=== PATIENT | female | born 1995 | race African-American/Black ===

== ENCOUNTER 2016-06-22 13:43 | Emergency (ER) | payer OTHER ==
[~2016-06-22] VITALS: Ht 152.4 cm; Wt 59.9 kg
[~2016-06-22 13:43] MED LIST: AFRIN15 ML NASAL; BIRTH CONTROL; DIFLUCAN100 MG PO; GILDESS1 EACH PO; MACROBID100 MG ORAL; NITROFURANTOIN100 M2 ORAL
[2016-06-22] MEDS ORDERED: VITAMIN D1000 UNI1 ORAL (13:54)
[2016-06-22 15:07] VITALS: BP 120/72
[2016-06-22] MEDS ORDERED: IBUPROFEN600 MG ORAL (15:18)
[2016-06-22 15:22] VITALS: BP 120/72
--- NOTE | 2016-06-23 12:34 | Emergency Room Report ---
History of Present Illness General Chief Complaint: Chest Pain Source: Patient Present Illness HPI The patient is a 20-year-old female presenting with left-sided chest pain which began one week prior. The pain is described as constant 5/10 dull ache and radiates to the left shoulder. The patient denies any known activity that may have caused this including increased physical activity or trauma. The patient denies any increased stressors in her life. The patient denies any medical history denies any familial cardiac history. The patient denies shortness of breath, diaphoresis, fatigue, weakness, palpitations, abdominal pain, nausea, vomiting, fever Allergies: Coded Allergies: No Known Allergies (Unverified , 08/04/13) Patient History Past Medical History: see triage record Pertinent Family History: none Last Menstrual Period: 06/18/2015 Reviewed Nursing Documentation: PMH: Agreed, PSxH: Agreed Nursing Documentation-PMH Past Medical History: No History, Except For Review of Systems All Other Systems: negative except mentioned in HPI Physical Exam Vital Signs Date Time Temp Pulse Resp B/P Pulse Ox O2 Delivery O2 Flow Rate FiO2 06/22/16 13:49 98.4 89 16 121/79 99 Room Air Sp02 EP Interpretation: reviewed, normal General Appearance: no apparent distress, alert, GCS 15, non-toxic Head: normocephalic, atraumatic Eyes: bilateral eye PERRL, bilateral eye normal inspection ENT: hearing grossly normal, normal pharynx, no angioedema, normal voice Neck: full range of motion, supple/symm/no masses Respiratory: chest non-tender, lungs clear, normal breath sounds, no accessory muscle use, no wheezing, speaking full sentences Cardiovascular #1: normal inspection, regular rate, rhythm, no edema, no murmur Gastrointestinal: normal bowel sounds, non tender, soft, non-distended, no guarding, no rebound Genitourinary: normal inspection, no CVA tenderness Musculoskeletal: back normal, gait/station normal, normal range of motion, non- tender, tender - TTP over mid sternum Neurologic: alert, oriented x3, responsive, motor strength/tone normal, sensory intact, speech normal Psychiatric: judgement/insight normal, memory normal, mood/affect normal, no suicidal/homicidal ideation Skin: normal color, no rash, warm/dry, well hydrated Lymphatic: no adenopathy Medical Decision Making PA Attestation Dr. Chahal is my supervising physician. Patient management was discussed with my supervising physician Diagnostic Impression: Primary Impression: Nonspecific chest pain ER Course The patient is a 20-year-old female presenting with left-sided chest pain which began one week prior. DDx: musculoskeletal pain, pericarditis, ACS, PE PE: Vitals WNL. NAD. RRR. No MRG. TTP over mid sternum. Abdomen: Normal appearance. Non distended. No ecchymosis. Normal BS. Non TTP. No McBurney point tenderness. No guarding. No CVA tenderness EKG unremarkable. Urine preg neg. Pt given motrin for pain with goof relief. The pt will be OK'ed home with prescription for motrin and will FU with PMD. ER precautions given Laboratory Tests Test 06/22/16 14:25 Urine HCG, Qualitative Negative Lab Results Impression Urine preg negative EKG Diagnostic Results Rate: normal Rhythm: NSR ST Segments: no acute changes ASA given to the pt in ED: No PA Scribe Text EKG was reviewed and read with my supervising physician. No acute ST segment changes are seen. Normal rate and rhythm. No acute changes. Last Vital Signs Date Time Temp Pulse Resp B/P Pulse Ox O2 Delivery O2 Flow Rate FiO2 06/22/16 15:22 98.7 74 16 120/72 97 Room Air Status: improved Disposition: HOME, SELF-CARE Condition: Improved Scripts Ibuprofen* (MOTRIN*) 600 Mg Tablet 600 MG ORAL Q8H Y for For Pain, #30 TAB 0 Refills Prov: JENS VERONICA 06/22/16 Patient Instructions: Nonspecific Chest Pain Additional Instructions: I discussed my findings with the patient. All questions and concerns have been answered. Treatment and medication compliance have been addressed. I advised the patient that they need to follow up with PMD in 3-5 days. Return to ED if symptoms worsen, new symptoms arise, or if needed for any reason. Patient verbalized understanding of discharge instructions. JENS VERONICA Jun 23, 2016 12:34
--- NOTE | 2016-06-26 18:05 | Cardiology Report ---
APPROVED REPORT EKG Measurement Heart [id number] Normal sinus rhythm with sinus arrhythmia Normal ECG
== END 2016-06-22 15:24 | disposition home or self-care (01) ==
LOC: EMR 14:00
DX: R07.9 Chest pain, unspecified (principal)
CPT/HCPCS: 81025; 93005; 99283

== ENCOUNTER 2016-09-06 11:16 | Emergency (ER) | payer OTHER ==
[~2016-09-06] VITALS: Ht 152.4 cm; Wt 54.4 kg
[~2016-09-06 11:16] MED LIST changes: +IBUPROFEN600 MG ORAL; +VITAMIN D1000 UNI1 ORAL
[2016-09-06] MEDS ORDERED: TYLENOL COLD &1 EAC1 PO (11:45)
[2016-09-06 11:59] VITALS: BP 120/80
--- NOTE | 2016-09-06 14:08 | Emergency Room Report ---
History of Present Illness General Chief Complaint: Sore Throat Source: Patient Present Illness HPI 20-year-old female presents ED complaining of sore throat x3 days. Notes pain with swallowing. Denies cough. Denies any fevers or chills. Denies sick contacts or recent travel. Pain is throbbing, 8/10, nonradiating. No other aggravating or relieving factors. Denies any other associated symptoms Allergies: Coded Allergies: No Known Allergies (Unverified , 08/04/13) Patient History Past Medical History: none Past Surgical History: none Pertinent Family History: none Social History: Denies: alcohol use, drug use, smoking Last Menstrual Period: 07/10/2016 Now: No : 0 Para: 0 Immunizations: UTD Reviewed Nursing Documentation: PMH: Agreed, PSxH: Agreed Review of Systems All Other Systems: negative except mentioned in HPI Physical Exam Vital Signs Date Time Temp Pulse Resp B/P Pulse Ox O2 Delivery O2 Flow Rate FiO2 09/06/16 11:28 98.1 100 16 113/64 99 09/06/16 11:57 Room Air Sp02 EP Interpretation: reviewed, normal General Appearance: no apparent distress, alert, GCS 15, non-toxic Head: normocephalic, atraumatic Eyes: bilateral eye PERRL, bilateral eye normal inspection ENT: hearing grossly normal, normal pharynx, no angioedema, normal voice Neck: full range of motion, supple/symm/no masses Respiratory: chest non-tender, lungs clear, normal breath sounds, speaking full sentences Cardiovascular #1: regular rate, rhythm, no edema Cardiovascular #2: 2+ carotid (R), 2+ carotid (L), 2+ radial (R), 2+ radial (L) , 2+ dorsalis pedis (R), 2+ dorsalis pedis (L) Gastrointestinal: normal bowel sounds, non tender, soft, non-distended, no guarding, no rebound Rectal: deferred Genitourinary: normal inspection, no CVA tenderness Musculoskeletal: back normal, gait/station normal, normal range of motion, non- tender Neurologic: alert, oriented x3, responsive, motor strength/tone normal, sensory intact, speech normal Psychiatric: judgement/insight normal, memory normal, mood/affect normal, no suicidal/homicidal ideation Reflexes: 3+ bicep (R), 3+ bicep (L), 3+ tricep (R), 3+ tricep (L), 3+ knee (R) , 3+ knee (L) Skin: normal color, no rash, warm/dry, well hydrated Lymphatic: no adenopathy Medical Decision Making Diagnostic Impression: Primary Impression: Viral pharyngitis ER Course Hospital Course 20-year-old female presents to ED complaining of sore throat Differential diagnoses include: URI, pharyngitis, otitis media Clinical course Patient placed on stretcher. After initial history, physical exam reveals a female in no acute distress. Bilateral TM unremarkable. There is no pharyngeal erythema, no tonsillar exudates. No lymphadenopathy. Clinical findings likely viral pharyngitis. Reassurance given. Treatment is supporttive Diagnosis - viral pharyngitis Stable and discharged home with prescriptions for tylenol multisymptom. Instructed to followup with PMD. return to ED if symptoms recur or worsen Last Vital Signs Date Time Temp Pulse Resp B/P Pulse Ox O2 Delivery O2 Flow Rate FiO2 09/06/16 11:59 98.0 86 16 120/80 98 Room Air Status: improved Disposition: HOME, SELF-CARE Condition: Stable Scripts Phenylephrine/Dm/Acetaminop/Gg (TYLENOL COLD & FLU SEVERE CPLT) 1 Each Tablet 1 EACH PO Q6HR for 7 Days, TAB Prov: MIMI MOROCHO M.D. 09/06/16 Referrals: [facility],REFERRING (PCP) Patient Instructions: Pharyngitis, [id number] MIMI MOROCHO M.D. Sep 06, 2016 14:08
== END 2016-09-06 11:57 | disposition home or self-care (01) ==
LOC: EMR 11:40
DX: J02.9 Acute pharyngitis, unspecified (principal); B34.9 Viral infection, unspecified
CPT/HCPCS: 99283

== ENCOUNTER 2017-01-10 12:52 | Emergency (ER) | payer OTHER ==
[~2017-01-10] VITALS: Ht 152.4 cm; Wt 61.7 kg
[~2017-01-10 12:52] MED LIST changes: +TYLENOL COLD &1 EAC1 PO
[2017-01-10 13:03] VITALS: BP 123/80
--- NOTE | 2017-01-10 13:12 | Emergency Room Report ---
History of Present Illness General Chief Complaint: Female Urogenital Problems Source: Patient Present Illness HPI 21 YO Female presents to ED c/o frequency, and spotting dark brown vaginal d/c possibly blood yesterday. pt. denies d/c today. pt. denies recent unprotected intercourse. Pt states she has not been sexually active in almost a year and also reports she quit taking - control two months ago. Denies hematuria, dysuria, rashes or open lesions. denies N/V/F/C, or abdominal pain. Pt. reports lower abdominal pressure/fullness rated as 4/10 in severity, denies tenderness. Denies CP, Palpitations, LOC, AMS, dizziness, Changes in Vision, Sensation, paresthesias, or a sudden severe headache. Allergies: Coded Allergies: No Known Allergies (Unverified , 08/04/13) Patient History Past Medical History: see triage record Past Surgical History: none Pertinent Family History: none Last Menstrual Period: 12/26/16 Now: No : 0 Para: 0 Immunizations: UTD Reviewed Nursing Documentation: PMH: Agreed, PSxH: Agreed Nursing Documentation-PMH Past Medical History: No History, Except For Review of Systems All Other Systems: negative except mentioned in HPI Physical Exam Vital Signs Date Time Temp Pulse Resp B/P Pulse Ox O2 Delivery O2 Flow Rate FiO2 01/10/17 13:03 98.4 76 17 123/80 98 Room Air Sp02 EP Interpretation: reviewed, normal General Appearance: no apparent distress, alert, GCS 15, non-toxic Head: normocephalic, atraumatic Eyes: bilateral eye PERRL, bilateral eye normal inspection ENT: hearing grossly normal, normal pharynx, no angioedema, normal voice Neck: full range of motion, supple/symm/no masses Respiratory: lungs clear, normal breath sounds, speaking full sentences Cardiovascular #1: regular rate, rhythm, no edema Gastrointestinal: normal bowel sounds, non tender, soft, no guarding, no rebound Rectal: deferred Genitourinary: normal inspection, no CVA tenderness, adnexa normal, cervix normal, ext genitalia/vag normal, os closed, urethra normal, other - no CMT, no vaginal d/c noted, no blood. Musculoskeletal: back normal, gait/station normal, normal range of motion, non- tender Neurologic: alert, oriented x3, responsive, motor strength/tone normal, sensory intact, speech normal Psychiatric: judgement/insight normal, memory normal, mood/affect normal Skin: normal color, no rash, warm/dry, well hydrated Lymphatic: no adenopathy Medical Decision Making PA Attestation Dr. Schmitt is my supervising Physician whom patient management has been discussed with. Diagnostic Impression: Primary Impression: Urinary frequency Additional Impression: Vaginal discharge ER Course 21 YO Female presents to ED c/o frequency, and spotting dark brown vaginal d/c possibly blood yesterday. pt. denies d/c today. pt. denies recent unprotected intercourse. Pt states she has not been sexually active in almost a year and also reports she quit taking - control two months ago. Denies hematuria, dysuria, rashes or open lesions. denies N/V/F/C, or abdominal pain. Pt. reports lower abdominal pressure/fullness rated as 4/10 in severity, denies tenderness. Denies CP, Palpitations, LOC, AMS, dizziness, Changes in Vision, Sensation, paresthesias, or a sudden severe headache. Ddx considered but are not limited to UTi , Pyelo, STI, Stone, Cystitis Vital signs: are WNL, pt. is afebrile H&PE are most consistent with spotting, will r/o UTI and do wet mount. HPI not consistent with STI, and pt. states she does not want prophylactic treatment. ORDERS: - UA labs are attached - unremarkable /no evidence of infection: occasional bacteria, few squamous epithelium, no elevation in WBC's or leuks, contamination more likely. -Wet Mount: no clue , no trich, no bacteria, no yeast. -Urine Hcg: negative I do not feel imaging/US is warranted at this time, as symptoms are not currently present, and pt. has no tenderness/pain. ED INTERVENTIONS: None required at this time. d/w pt. the results of her laboratory testing, and encouraged follow up with PCP or OBGYN. Return to ED with worsening or new symptoms. DISCHARGE: At this time pt. is stable for d/c to home. Will provide printed patient care instructions, and any necessary prescriptions. Care plan and follow up instructions have been discussed with the patient prior to discharge. Labs Test 01/10/17 13:10 Urine Color Yellow Urine Appearance Clear Urine pH 7 (4.5-8.0) Urine Specific Power 1.010 (1.005-1.035) Urine Protein Negative (NEGATIVE) Urine Glucose (UA) Negative (NEGATIVE) Urine Ketones Negative (NEGATIVE) Urine Occult Blood Negative (NEGATIVE) Urine Nitrite Negative (NEGATIVE) Urine Bilirubin Negative (NEGATIVE) Urine Urobilinogen Normal MG/DL (0.0-1.0) Urine Leukocyte Esterase 1+ (NEGATIVE) Urine RBC 0-2 /HPF (0 - 2) Urine WBC 2-4 /HPF (0 - 2) Urine Squamous Epithelial Cells Few /LPF (NONE/OCC) Urine Bacteria Occasional /HPF (NONE) Urine HCG, Qualitative Negative Last Vital Signs Date Time Temp Pulse Resp B/P Pulse Ox O2 Delivery O2 Flow Rate FiO2 01/10/17 13:03 98.4 76 17 123/80 98 Room Air Disposition: HOME, SELF-CARE Condition: Stable Scripts Phenazopyridine Hcl* (PYRIDIUM*) 100 Mg Tablet 100 MG ORAL THREE TIMES A DAY for 3 Days, #9 TAB Prov: Susanne Champagne 01/10/17 Patient Instructions: Urinary Frequency Additional Instructions: Take medications as directed. Follow up with a Primary Care Provider in 3-5 days, even if your symptoms have resolved. --Please review list of primary care clinics, if you do not already have a primary care provider Return sooner to ED if new symptoms occur, or current symptoms become worse. - Please note that this Emergency Department Report was dictated using [employer]/program director technology software, occasionally this can lead to erroneous entry secondary to interpretation by the dictation equipment. Susanne Champagne Jan 10, 2017 13:12
[2017-01-10 13:55] LABS: APPEARANCE,URINE CLEAR; KETONES,URINE NEGATIVE (NEGATIVE); LEUKOCYTE ESTERASE ,URINE 1+ (NEGATIVE); NITRITE,URINE NEGATIVE (NEGATIVE); PH,URINE 7 (4.5-8.0); PROTEIN,URINE NEGATIVE (NEGATIVE); UROBILINOGEN,URINE NORMAL MG/DL (0.0-1.0)
[2017-01-10 14:14] LABS: BACTERIA,URINE OCCASIONAL /HPF; RBC,URINE 0-2 /HPF (0 - 2); SQUAMOUS EPITHELIAL CELL,UR FEW /LPF (NONE/OCC)
[2017-01-10] MEDS ORDERED: PHENAZOPYRIDIN100 MG ORAL (14:20)
[2017-01-10 14:29] VITALS: BP 95/62
== END 2017-01-10 14:31 | disposition home or self-care (01) ==
LOC: EMR 13:54
DX: R35.0 Frequency of micturition (principal); N89.8 Other specified noninflammatory disorders of vagina
CPT/HCPCS: 58999; 81003; 81025; 87210; 99283

== ENCOUNTER 2017-02-22 13:21 | Emergency (ER) | payer OTHER ==
[~2017-02-22] VITALS: Ht 154.9 cm; Wt 63.5 kg
[~2017-02-22 13:21] MED LIST changes: +PHENAZOPYRIDIN100 MG ORAL
[2017-02-22] MEDS ORDERED: AMOXICILLIN500 MG ORAL (14:12)
[2017-02-22] MEDS ORDERED: PREDNISONE20 MG ORAL (14:12)
[2017-02-22] MEDS ORDERED: IBUPROFEN600 MG ORAL (14:12)
[2017-02-22 14:35] VITALS: BP 100/64
--- NOTE | 2017-02-22 14:59 | Emergency Room Report ---
History of Present Illness General Chief Complaint: Sore Throat Source: Patient Present Illness [facility] The patient is a 21-year-old female presenting for sore throat, cough, ear pain , and fatigue for the past 3 weeks. She was seen in this emergency department previously and diagnosed with viral pharyngitis. She states the symptoms have been worsening. Pain described as 8/10 sharp sensation to back of the throat and does not radiate. Worse with swallowing. She also admits to subjective fever and chills. She denies any known sick contacts or recent travel. She denies any other symptoms including headache, rash, abd pain, dysuria, Allergies: Coded Allergies: No Known Allergies (Unverified , 08/04/13) Patient History Past Medical History: see triage record Pertinent Family History: none Last Menstrual Period: 01/25/17 Now: No Reviewed Nursing Documentation: PMH: Agreed, PSxH: Agreed Nursing Documentation-PMH Past Medical History: No Stated History Review of Systems All Other Systems: negative except mentioned in HPI Physical Exam Vital Signs Date Time Temp Pulse Resp B/P (MAP) Pulse Ox O2 Delivery O2 Flow Rate FiO2 02/22/17 13:38 99.1 121 102/63 100 Room Air 02/22/17 14:35 20 Sp02 EP Interpretation: reviewed, normal General Appearance: no apparent distress, alert, GCS 15, non-toxic Head: normocephalic, atraumatic Eyes: bilateral eye normal inspection, bilateral eye PERRL ENT: hearing grossly normal, no angioedema, normal voice, uvula midline, tonsillar swelling, pharyngeal erythema, tonsillar exudate Neck: full range of motion, supple/symm/no masses Respiratory: chest non-tender, lungs clear, normal breath sounds, speaking full sentences Cardiovascular #1: regular rate, rhythm, no edema Musculoskeletal: back normal, gait/station normal, normal range of motion, non- tender Neurologic: alert, oriented x3, responsive, motor strength/tone normal, sensory intact, speech normal Psychiatric: judgement/insight normal, memory normal, mood/affect normal, no suicidal/homicidal ideation Skin: normal color, no rash, warm/dry, well hydrated Lymphatic: no adenopathy Medical Decision Making PA Attestation Dr. Summers is my supervising physician. Patient management was discussed with my supervising physician Diagnostic Impression: Primary Impression: Pharyngitis, acute Qualified Codes: J02.9 - Acute pharyngitis, unspecified ER Course The patient is a 21-year-old female presenting for sore throat, cough, ear pain , and fatigue Differential diagnosis include but not limited to pharyngitis, sinusitis, AOM, bronchitis, PNA Physical exam: Pt initially afebrile but has 100.7F at time of DC. HEENT exam: There is bilateral tonsillar edema, erythema, and exudate. Uvula midline. Moist mucous membranes. There is no cervical lymphadenopathy. Lungs are clear to auscultation bilaterally Skin is warm and dry. No rash The patient will be discharged home with a prescription for amoxicillin and is given ER precautions. Patient will followup with primary care Last Vital Signs Date Time Temp Pulse Resp B/P (MAP) Pulse Ox O2 Delivery O2 Flow Rate FiO2 02/22/17 14:35 100.7 101 20 100/64 100 Room Air Status: improved Disposition: HOME, SELF-CARE Condition: Improved Scripts Ibuprofen* (MOTRIN*) 600 Mg Tablet 600 MG ORAL Q8H Y for For Pain, #30 TAB 0 Refills Prov: JENS VERONICA.A. 02/22/17 Prednisone* (PREDNISONE*) 20 Mg Tablet 40 MG ORAL DAILY, #10 TAB Prov: JENS VERONICA P.A. 02/22/17 Amoxicillin* (AMOXIL*) 500 Mg Capsule 500 MG ORAL Q12HR, #20 CAP Prov: JENS VERONICA P.A. 02/22/17 Patient Instructions: Pharyngitis Additional Instructions: I discussed my findings with the patient. All questions and concerns have been answered. Treatment and medication compliance have been addressed. I advised the patient that they need to follow up with PMD in 3-5 days. Return to ED if pain remains or worsens, cough worsens or remains, you notice blood in your sputum, you notice wheezing, you experience a fever, or if needed for any reason. Patient verbalized understanding of discharge instructions. JENS VERONICA Feb 22, 2017 14:59
== END 2017-02-22 14:35 | disposition home or self-care (01) ==
LOC: EMR 14:09
DX: J02.9 Acute pharyngitis, unspecified (principal)
CPT/HCPCS: 99284

== ENCOUNTER 2018-04-04 16:01 | Emergency (ER) | payer OTHER ==
[~2018-04-04] VITALS: Ht 152.4 cm; Wt 77.1 kg
[~2018-04-04 16:01] MED LIST changes: +AMOXICILLIN500 MG ORAL; +PREDNISONE20 MG ORAL
[2018-04-04 16:25] VITALS: BP 117/72
[2018-04-04] MEDS ORDERED: Benzonatate 100mg Perles ORAL ONE (16:30)
[2018-04-04] MEDS ORDERED: Acetaminophen 500mg (ES) tab ORAL ONE (16:30)
--- NOTE | 2018-04-04 16:30 | Emergency Room Report ---
History of Present Illness General Chief Complaint: General Complaint Source: Patient Present Illness HPI 22-year-old female patient presents ER complaining of sternal chest pain and cough 1 day. Patient reports symptoms began this morning following coughing symptoms. Reports dry cough. Denies cough with mucus or hemoptysis. Denies history of heart attack or taking blood pressure medications. reports pain is reproducible. Reports pain is worse with cough. Denies fever, abdominal pain, diarrhea, headache. Reports history of asthma when she was "younger", denies history of asthma symptoms at this time. denies shortness of breath. States has not taken any medication for relief of symptoms. patient reports thinks it may be related to flu shot she received a week ago. Patient in ER with mother being seen for different symptoms. Mother reports may be related to anxiety. Denies thoughts of hurting herself or others. Allergies: Coded Allergies: No Known Allergies (Unverified , 08/04/13) Patient History Past Medical History: see triage record Last Menstrual Period: 02/25/2018 Now: No Reviewed Nursing Documentation: PMH: Agreed; PSxH: Agreed Nursing Documentation-PMH Past Medical History: No History, Except For Hx Cardiac Problems: No Hx Hypertension: No Hx Pacemaker: No Hx Asthma: Yes Hx COPD: No Hx Diabetes: No Hx Cancer: No Hx Gastrointestinal Problems: No Hx Dialysis: No History Of Psychiatric Problem: No Hx Neurological Problems: No Hx Cerebrovascular Accident: No Hx Seizures: No Review of Systems All Other Systems: negative except mentioned in HPI Physical Exam Vital Signs Date Time Temp Pulse Resp B/P (MAP) Pulse Ox O2 Delivery O2 Flow Rate FiO2 04/04/18 16:15 99.2 85 14 117/72 97 Room Air 99.1 Sp02 EP Interpretation: reviewed, normal General Appearance: well appearing, no apparent distress, alert, GCS 15, non- toxic Head: normocephalic, atraumatic Eyes: bilateral eye normal inspection, bilateral eye PERRL ENT: hearing grossly normal, normal pharynx, no angioedema, normal voice, uvula midline, moist mucus membranes Neck: full range of motion Respiratory: lungs clear, normal breath sounds, no rhonchi, no respiratory distress, no accessory muscle use, no wheezing, speaking full sentences, other - TTP over sternum Cardiovascular #1: regular rate, rhythm, no edema Gastrointestinal: non tender, soft, no mass, non-distended, no guarding, no rebound Genitourinary: no CVA tenderness Musculoskeletal: back normal, digits/nails normal, gait/station normal, normal range of motion, non-tender, no calf tenderness, Mikhail's Sign negative Neurologic: alert, oriented x3, responsive, motor strength/tone normal, sensory intact Psychiatric: mood/affect normal Skin: no rash Medical Decision Making PA Attestation Dr. Chahal is my supervising Physician whom patient management has been discussed with. Diagnostic Impression: Primary Impression: Nonspecific chest pain Additional Impression: Cough ER Course Pt presents to ED c/o chest pain and cough. DDX considered but are not limited to influenza, viral URI, pneumonia, bronchitis, AL, costochondritis, anxiety. VITAL SIGNS are WNL, patient is afebrile. ER COURSE: provided with pain medication and cough medication. EKG ST elevations are atrial fibrillation CXR negative for acute disease. Low suspicion for cardiac etiology of pain symptoms. On PE, chest is TTP; chest pain likely musculoskeletal in nature secondary to cough, does not require cardiac workup at this time. Patient instructed to take NSAIDs as needed for pain symptoms. Lungs clear to auscultation, no wheezes, rhonci or rales. patient afebrile. Low suspicion for pneumonia. Likely viral etiology of symptoms. Symptomatic treatment. Drink plenty of fluids. Followup with PCP for further treatment and/or referral as needed. ER precautions given. DISCHARGE: -Rx given for Albuterol inhaler due to hx of asthma, no wheezing, does not require breathing treatment acutely. -Rx given for Tylenol/Acetaminophen -Rx given for Tessalon Perles At this time pt is stable for d/c to home. Patient is resting comfortably, in no acute distress, nontoxic appearing. Patient to take medications as instructed Will provide with patient care instructions and any necessary prescriptions. Care plan and follow-up instructions provided. Patient instructed to follow-up with primary care provider in 3 - 5 days. Patient questions asked and answered. Patient reports understanding and agreement to treatment plan. ER precautions given. Patient instructed to return to ER immediately for any new or worsening of symptoms including but not limited to increasing SOB, persistent fever, intractable vomiting. - Please note that this Emergency Department Report was dictated using [employer] maker technology software, occasionally this can lead to erroneous entry secondary to interpretation by the dictation equipment. EKG Diagnostic Results Rate: normal Rhythm: NSR ST Segments: no acute changes ASA given to the pt in ED: No PA Scribe Text Fermin Schmitz PA-C Rhythm Strip Diag. Results EP Interpretation: yes Rate: 73 Rhythm: NSR, no PVC's, no ectopy Other Impression isolated inverted T-wave in lead 3 PA Scribe Text Fermin Schmitz PA-C Chest X-Ray Diagnostic Results Chest X-Ray Diagnostic Results : Chest X-Ray Ordered: Yes # of Views/Limited/Complete: 1 View Indication: Chest Pain EP Interpretation: Yes PA Xray: Interpretation reviewed Interpretation: no consolidation Last Vital Signs Date Time Temp Pulse Resp B/P (MAP) Pulse Ox O2 Delivery O2 Flow Rate FiO2 04/04/18 16:15 99.2 85 14 117/72 97 Room Air 99.1 Status: improved Disposition: HOME, SELF-CARE Condition: Stable Scripts Benzonatate* (TESSALON PERLE*) 100 Mg Capsule 100 MG ORAL THREE TIMES A DAY, #15 PERLE Prov: Gasper Schmitz 04/04/18 Albuterol Sulfate* (ALBUTEROL SULFATE MDI*) 8.5 Gm Hfa.aer.ad 2 PUFF INH Q6H, #1 INH 0 Refills Prov: Gasper Schmitz 04/04/18 Acetaminophen* (TYLENOL EXTRA STRENGTH*) 500 Mg Tablet 500 MG ORAL Q8H PRN for Prn Headache/Temp > 101, #30 TAB 0 Refills Prov: Gasper Schmitz 04/04/18 Patient Instructions: Costochondritis, [id number], Nonspecific Chest Pain, Upper Respiratory Infection, Adult, [id number] Additional Instructions: Followup with primary care provider in 3 -5 days. Take medications as directed. Patient questions asked and answered. ER precautions given, patient instructed to return to ER immediately for any new or worsening of symptoms. Gasper Schmitz Apr 04, 2018 16:30
[2018-04-04] MEDS ORDERED: TYLENOL EXTRA500 MG ORAL (16:53)
[2018-04-04] MEDS ORDERED: ALBUTEROL SULF8.5 GM INH (16:53)
[2018-04-04] MEDS ORDERED: TESSALON PERLE100 MG ORAL (16:53)
[2018-04-04 16:58] VITALS: BP 117/72
--- NOTE | 2018-04-04 17:05 | Diagnostic Imaging Report ---
Indication: Chest pain Technique: One view of the chest Comparison: none Findings: Lungs and pleural spaces are clear. Heart size is normal Impression: No acute process
== END 2018-04-04 17:01 | disposition home or self-care (01) ==
LOC: EMR 16:35
DX: R07.9 Chest pain, unspecified (principal); R05 Cough; J45.909 Unspecified asthma, uncomplicated
CPT/HCPCS: 71045; 93005; 99283

== ENCOUNTER 2018-04-19 11:43 | Emergency (ER) | payer OTHER ==
[~2018-04-19] VITALS: Ht 152.4 cm; Wt 68.0 kg
[~2018-04-19 11:43] MED LIST changes: +ALBUTEROL SULF8.5 GM INH; +TESSALON PERLE100 MG ORAL; +TYLENOL EXTRA500 MG ORAL
[2018-04-19 11:54] VITALS: BP 111/65
[2018-04-19] MEDS ORDERED: IBUPROFEN600 MG ORAL (12:09)
[2018-04-19] MEDS ORDERED: AMOXICILLIN500 MG ORAL (12:09)
[2018-04-19 12:12] VITALS: BP 111/65
--- NOTE | 2018-04-19 12:21 | Emergency Room Report ---
History of Present Illness General Chief Complaint: Sore Throat Source: Patient, Medical Record Present Illness HPI Patient presents with complaints of sore throat Ongoing for the past several days Reports subjective fever at home Pain is worse with swallowing Denies any posterior neck pain denies any photophobia Denies any chest pain or shortness of breath denies any cough Allergies: Coded Allergies: No Known Allergies (Unverified , 04/19/18) Patient History Past Medical History: see triage record Pertinent Family History: none Last Menstrual Period: Mar 2018 Reviewed Nursing Documentation: PMH: Agreed; PSxH: Agreed Nursing Documentation-PMH Past Medical History: No History, Except For Hx Cardiac Problems: No Hx Hypertension: No Hx Pacemaker: No Hx Asthma: Yes Hx COPD: No Hx Diabetes: No Hx Cancer: No Hx Gastrointestinal Problems: No Hx Dialysis: No Hx Neurological Problems: No Hx Cerebrovascular Accident: No Hx Seizures: No Review of Systems All Other Systems: negative except mentioned in HPI Physical Exam Vital Signs Date Time Temp Pulse Resp B/P (MAP) Pulse Ox O2 Delivery O2 Flow Rate FiO2 04/19/18 11:54 98.1 84 16 111/65 100 Room Air Sp02 EP Interpretation: reviewed, normal General Appearance: well appearing, no apparent distress Head: normocephalic, atraumatic Eyes: bilateral eye PERRL, bilateral eye EOMI ENT: hearing grossly normal, TMs + canals normal, uvula midline, pharyngeal erythema Neck: full range of motion, supple, no meningismus, no bony tend Respiratory: lungs clear, normal breath sounds, no rhonchi, no respiratory distress, no retraction, no accessory muscle use Cardiovascular #1: normal peripheral pulses, regular rate, rhythm, no edema, no gallop, no JVD, no murmur Gastrointestinal: normal bowel sounds, non tender, soft, no mass, no organomegaly, non-distended, no guarding, no hernia, no pulsatile mass, no rebound Genitourinary: no CVA tenderness Musculoskeletal: normal inspection Neurologic: oriented x3, responsive, curriculum and instruction director III-XII nml as tested, motor strength/ tone normal, sensory intact Psychiatric: mood/affect normal Skin: normal color, no rash, warm/dry, palpation normal Lymphatic: normal inspection, no adenopathy Medical Decision Making Diagnostic Impression: Primary Impression: pharyngitis ER Course Patient's exam is consistent with pharyngitis There are no signs of peritonsillar abscess, retropharyngeal abscess is also considered however less likely Patient will have initial conservative outpatient trial and return with any changes or concerns Last Vital Signs Date Time Temp Pulse Resp B/P (MAP) Pulse Ox O2 Delivery O2 Flow Rate FiO2 04/19/18 12:12 98.1 84 16 111/65 100 Room Air Status: unchanged Disposition: HOME, SELF-CARE Condition: Stable Scripts Amoxicillin* (AMOXIL*) 500 Mg Capsule 500 MG ORAL THREE TIMES A DAY, #21 CAP Prov: Ines Vinson DO 04/19/18 Ibuprofen* (MOTRIN*) 600 Mg Tablet 600 MG ORAL Q8H PRN for For Pain, #20 TAB 0 Refills Prov: Ines Vinson DO 04/19/18 Referrals: NOT CHOSEN IPA/MD,REFERRING (PCP) Patient Instructions: Pharyngitis, [id number] Additional Instructions: Patient is provided with the discharge instructions notified to follow up with primary doctor in the next 2-3 days otherwise return to the er with any worsening symptoms. Please note that this report is being documented using NullPointer technology. This can lead to erroneous entry secondary to incorrect interpretation by the dictating instrument. Ines Vinson DO Apr 19, 2018 12:21
== END 2018-04-19 12:13 | disposition home or self-care (01) ==
LOC: EMR 12:09
DX: J02.9 Acute pharyngitis, unspecified (principal); J45.909 Unspecified asthma, uncomplicated
CPT/HCPCS: 99283

== ENCOUNTER 2018-07-22 22:03 | Emergency (ER) | payer OTHER ==
[~2018-07-22] VITALS: Ht 152.4 cm; Wt 68.0 kg
[2018-07-22] MEDS ORDERED: NKM (22:07)
--- NOTE | 2018-07-22 22:10 | NUR ---
ED Nurse Note: Patient walk in c/o pressure pain with urination and foul smelling urine for 1 week. Pt is AO x 4times, VSS, on room air no distress. ERMD seen Pt at bedside.
[2018-07-22 22:11] VITALS: BP 129/82
[2018-07-22] MEDS ORDERED: LEVAQUIN500 MG ORAL (22:21)
--- NOTE | 2018-07-22 22:22 | Emergency Room Report ---
History of Present Illness General Chief Complaint: Female Urogenital Problems Source: Patient, Medical Record Present Illness HPI This is a 22-year-old female with a history of previous UTI. She presents with chief complaint of UTI symptoms. Onset for 1 week but worse tonight. She has urgency and frequency. Had hematuria tonight. No nausea no vomiting. Worse with urination. No back pain. Similar symptom in the past. Has not take anything for this. No nausea or vomiting. Allergies: Coded Allergies: No Known Allergies (Unverified , 04/19/18) Patient History Past Medical History: see triage record, old chart reviewed Past Surgical History: none Pertinent Family History: none Social History: Denies: smoking Last Menstrual Period: 07/05/2018 Now: No Immunizations: other Reviewed Nursing Documentation: PMH: Agreed; PSxH: Agreed Nursing Documentation-PMH Past Medical History: No History, Except For Hx Cardiac Problems: No Hx Hypertension: No Hx Pacemaker: No Hx Asthma: Yes Hx COPD: No Hx Diabetes: No Hx Cancer: No Hx Gastrointestinal Problems: No Hx Dialysis: No Hx Neurological Problems: No Hx Cerebrovascular Accident: No Hx Seizures: No Review of Systems Eye: Denies: eye pain, blurred vision ENT: Denies: ear pain, nose congestion, throat swelling Respiratory: Denies: cough, shortness of breath Cardiovascular: Denies: chest pain, palpitations Gastrointestinal: Denies: abdominal pain, diarrhea, nausea, vomiting Genitourinary: Reports: dysuria, frequency, hematuria, pain, urgency Musculoskeletal: Denies: back pain, joint pain Skin: Denies: rash Neurological: Denies: headache, numbness Endocrine: Denies: increased thirst, increased urine Hematologic/Lymphatic: Denies: easy bruising All Other Systems: negative except mentioned in HPI Physical Exam Vital Signs Date Time Temp Pulse Resp B/P (MAP) Pulse Ox O2 Delivery O2 Flow Rate FiO2 07/22/18 22:04 98.1 86 16 126/78 95 Room Air vitals normal Sp02 EP Interpretation: reviewed, normal General Appearance: well appearing, no apparent distress, alert Head: normocephalic, atraumatic Eyes: bilateral eye PERRL, bilateral eye EOMI ENT: hearing grossly normal, normal pharynx Neck: full range of motion, supple, no meningismus Respiratory: chest non-tender, lungs clear, normal breath sounds Cardiovascular #1: regular rate, rhythm, no murmur Gastrointestinal: normal bowel sounds, non tender, no mass, no organomegaly, no bruit, non-distended Musculoskeletal: back normal, gait/station normal, normal range of motion Psychiatric: mood/affect normal Skin: warm/dry Medical Decision Making Diagnostic Impression: Primary Impression: Urinary tract infection Qualified Codes: N30.01 - Acute cystitis with hematuria ER Course Patient with UTI symptoms. She grew out Klebsiella in the past. We'll discharge home with Levaquin. No evidence of sepsis or pyelonephritis. Last Vital Signs Date Time Temp Pulse Resp B/P (MAP) Pulse Ox O2 Delivery O2 Flow Rate FiO2 07/22/18 22:04 98.1 86 16 126/78 95 Room Air Status: improved Disposition: HOME, SELF-CARE Condition: Stable Scripts Levofloxacin* (LEVAQUIN*) 500 Mg Tablet 500 MG ORAL DAILY, #6 TAB Prov: Danny Zapata MD 07/22/18 Patient Instructions: Urinary Tract Infection Additional Instructions: Follow-up with your Dr. in 2-3 days if not better. Return if symptom worsen. Danny Zapata MD Jul 22, 2018 22:22
[2018-07-22] MEDS ORDERED: PHENAZOPYRIDIN200 MG ORAL (22:24)
[2018-07-22 22:28] VITALS: BP 129/82
--- NOTE | 2018-07-22 22:29 | NUR ---
ED Nurse Note: Pt claered DC by MARY. Pt is AO x 4times, VSS, on room air no distress. ID bend removed. Belongings given back to Pt. DC and Meds instructions given to Pt, Pt understood well. Pt walked out unit with steady gait.
[2018-07-22] MEDS ORDERED: Phenazopyridine 200mg tab ORAL ONE (22:30)
[2018-07-22] MEDS ORDERED: Levofloxacin 500mg tab ORAL ONE (22:30)
== END 2018-07-22 22:43 | disposition home or self-care (01) ==
LOC: EMR 22:18
DX: N39.0 Urinary tract infection, site not specified (principal); J45.909 Unspecified asthma, uncomplicated
CPT/HCPCS: 87086; 99283

== ENCOUNTER 2018-09-07 10:31 | Emergency (ER) | payer OTHER ==
[~2018-09-07] VITALS: Ht 165.1 cm; Wt 72.6 kg
[~2018-09-07 10:31] MED LIST changes: +LEVAQUIN500 MG ORAL; +NKM; +PHENAZOPYRIDIN200 MG ORAL
[2018-09-07 10:40] VITALS: BP 121/73
[2018-09-07] MEDS ORDERED: VENTOLIN HFA18 GM INH (10:43)
--- NOTE | 2018-09-07 10:50 | NUR ---
ED Nurse Note: Patient walked into ED brought in by her mother, patient reports nausea/vomiting and diarrhea. patient reports traveling to [place]. Patient states diarreha started on 09/02/18. Nausea/vomiting 09/04/18. patient also reports generalized body pain.
[2018-09-07] MEDS ORDERED: DiphenhydrAMINE 50mg/ml Inj IVP ONE (11:15)
[2018-09-07] MEDS ORDERED: Morphine Sulfate 2mg/ml Inj(IV/IM USE ONLY) IVP ONE (11:15)
[2018-09-07] MEDS ORDERED: Metoclopramide 10mg/2ml Inj IVP ONE (11:15)
[2018-09-07 11:40] LABS: APPEARANCE,URINE CLEAR; BILIRUBIN, URINE NEGATIVE (NEGATIVE); COLOR,URINE PALE YELLOW; GLUCOSE, URINE (UA) NEGATIVE (NEGATIVE); KETONES,URINE 1+ (NEGATIVE); LEUKOCYTE ESTERASE ,URINE NEGATIVE (NEGATIVE); NITRITE,URINE NEGATIVE (NEGATIVE); PH,URINE 7 (4.5-8.0); PROTEIN,URINE NEGATIVE (NEGATIVE); UROBILINOGEN,URINE NORMAL MG/DL (0.0-1.0)
[2018-09-07 11:44] LABS: HEMOGLOBIN 12.4 G/DL (12.0-16.0); MEAN CORPUSCULAR VOLUME 89 FL (80-99); PLATELET COUNT 188 K/UL (150-450); RED BLOOD COUNT 4.16 M/UL (4.20-5.40); RED CELL DISTRIBUTION WIDTH 11.4 % (11.6-14.8)
[2018-09-07 11:59] LABS: ANION GAP 10 mmol/L (5-15); BLOOD UREA NITROGEN 8 mg/dL (7-18); CALCIUM 9.1 MG/DL (8.5-10.1); CARBON DIOXIDE 26 MMOL/L (21-32); CHLORIDE 102 MMOL/L (98-107); CREATININE 0.9 MG/DL (0.55-1.30); POTASSIUM 3.7 MMOL/L (3.5-5.1); SODIUM 138 MMOL/L (136-145)
[2018-09-07 12:04] LABS: ALANINE AMINOTRANSFERASE 20 U/L (12-78); ALBUMIN 3.8 G/DL (3.4-5.0); ALBUMIN/GLOBULIN RATIO 0.9 (1.0-2.7); ALKALINE PHOSPHATASE 81 U/L (46-116); ASPARTATE AMINO TRANSFERASE 17 U/L (15-37); BILIRUBIN,TOTAL 0.4 MG/DL (0.2-1.0)
--- NOTE | 2018-09-07 15:50 | Emergency Room Report ---
History of Present Illness General Chief Complaint: Nausea, Vomiting, and Diarrhea Source: Patient, Family Member Present Illness HPI The patient presents with fevers, chills, sore throat, vomiting and diarrhea. Patient returned from [facility] yesterday. She is unable to keep down medication. She also has lower back pain. The pain is rated 10/10. It does not radiate down her legs. She denies dysuria. The diarrhea is green without any blood. She states that several others were ill returning from [facility]. She is a slight headache. No rashes. No chest pain or cough and no dyspnea. No calf pain or edema. Not no major medical problems. 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 Last Menstrual Period: a week ago Reviewed Nursing Documentation: PMH: Agreed; PSxH: Agreed Nursing Documentation-PMH Hx Cardiac Problems: No Hx Hypertension: No Hx Pacemaker: No Hx Asthma: Yes Hx COPD: No Hx Diabetes: No Hx Cancer: No Hx Gastrointestinal Problems: No Hx Dialysis: No Hx Neurological Problems: No Hx Cerebrovascular Accident: No Hx Seizures: No Review of Systems All Other Systems: negative except mentioned in HPI Physical Exam Vital Signs Date Time Temp Pulse Resp B/P (MAP) Pulse Ox O2 Delivery O2 Flow Rate FiO2 09/07/18 10:40 102.9 115 24 121/73 96 Room Air Sp02 EP Interpretation: reviewed, normal General Appearance: alert, GCS 15, non-toxic, mild distress, other - Retching Head: normocephalic Eyes: bilateral eye normal inspection, bilateral eye PERRL, bilateral eye EOMI ENT: moist mucus membranes, pharyngeal erythema, other - No exudates Neck: supple Respiratory: lungs clear, normal breath sounds Cardiovascular #1: regular rate, rhythm Cardiovascular #2: 2+ radial (R) Gastrointestinal: normal inspection, normal bowel sounds, no mass, non- distended, no guarding, no rebound, tenderness - Diffuse, overweight Genitourinary: no CVA tenderness Musculoskeletal: normal range of motion, no calf tenderness, other - Reported back pain but not tender to palpation Neurologic: alert, oriented x3, grossly normal Psychiatric: other - Feels ill Skin: normal inspection, warm/dry Medical Decision Making Diagnostic Impression: Primary Impression: Nausea, vomiting, and diarrhea Additional Impressions: Pharyngitis Qualified Codes: J02.9 - Acute pharyngitis, unspecified Back pain Qualified Codes: M54.5 - Low back pain ER Course Patient presents with fever, sore throat, nausea, vomiting, diarrhea, back pain and abdominal discomfort after returning from [facility]. Differential includes strep, viral pharyngitis, gastroenteritis, infectious diarrhea and possible strep related musculoskeletal sequelae amongst others. Evaluation will be with labs. Patient will receive antipyretics, IV hydration, Reglan, Benadryl and small dose of morphine. Stool will be sent if produced. CBC with normal white count but left shift. CMP normal. Urinalysis clear. Patient improved with treatment. Abdomen is soft. Back is no longer tender. Stool was not produced. Due to the possible of bacterial infectious etiology ciprofloxacin is given IV. Tylenol is given. Discussed findings with patient and mother. Also discussed close outpatient observation and the need for follow-up. Patient stable for close outpatient observation and treatment. Laboratory Tests Test 09/07/18 11:05 09/07/18 11:09 Urine Color Pale yellow Urine Appearance Clear Urine pH 7 (4.5-8.0) Urine Specific [place] 1.005 (1.005-1.035) Urine Protein Negative (NEGATIVE) Urine Glucose (UA) Negative (NEGATIVE) Urine Ketones 1+ (NEGATIVE) H Urine Blood Negative (NEGATIVE) Urine Nitrite Negative (NEGATIVE) Urine Bilirubin Negative (NEGATIVE) Urine Urobilinogen Normal MG/DL (0.0-1.0) Urine Leukocyte Esterase Negative (NEGATIVE) Urine HCG, Qualitative Negative (NEGATIVE) White Blood Count 9.0 K/UL (4.8-10.8) Red Blood Count 4.16 M/UL (4.20-5.40) L Hemoglobin 12.4 G/DL (12.0-16.0) Hematocrit 37.0 % (37.0-47.0) Mean Corpuscular Volume 89 FL (80-99) Mean Corpuscular Hemoglobin 29.7 PG (27.0-31.0) Mean Corpuscular Hemoglobin Concent 33.4 G/DL (32.0-36.0) Red Cell Distribution Width 11.4 % (11.6-14.8) L Platelet Count 188 K/UL (150-450) Mean Platelet Volume 6.5 FL (6.5-10.1) Neutrophils (%) (Auto) % (45.0-75.0) Lymphocytes (%) (Auto) % (20.0-45.0) Monocytes (%) (Auto) % (1.0-10.0) Eosinophils (%) (Auto) % (0.0-3.0) Basophils (%) (Auto) % (0.0-2.0) Differential Total Cells Counted 100 Neutrophils % (Manual) 86 % (45-75) H Lymphocytes % (Manual) 8 % (20-45) L Monocytes % (Manual) 4 % (1-10) Eosinophils % (Manual) 1 % (0-3) Basophils % (Manual) 0 % (0-2) Band Neutrophils 1 % (0-8) Platelet Estimate Adequate Platelet Morphology Normal Red Blood Cell Morphology Normal Prothrombin Time 10.8 SEC (9.30-11.50) Prothrombin Time INR 1.0 (0.9-1.1) PTT 29 SEC (23-33) Sodium Level 138 MMOL/L (136-145) Potassium Level 3.7 MMOL/L (3.5-5.1) Chloride Level 102 MMOL/L (98-107) Carbon Dioxide Level 26 MMOL/L (21-32) Anion Gap 10 mmol/L (5-15) Blood Urea Nitrogen 8 mg/dL (7-18) Creatinine 0.9 MG/DL (0.55-1.30) Estimate Glomerular Filtration Rate > 60 mL/min (>60) Glucose Level 91 MG/DL (74-106) Lactic Acid Level 1.00 mmol/L (0.4-2.0) Calcium Level 9.1 MG/DL (8.5-10.1) Total Bilirubin 0.4 MG/DL (0.2-1.0) Aspartate Amino Transferase (AST) 17 U/L (15-37) Alanine Aminotransferase (ALT) 20 U/L (12-78) Alkaline Phosphatase 81 U/L (46-116) Total Protein 7.9 G/DL (6.4-8.2) Albumin 3.8 G/DL (3.4-5.0) Globulin 4.1 g/dL Albumin/Globulin Ratio 0.9 (1.0-2.7) L Lipase 63 U/L (73-393) L Last Vital Signs Date Time Temp Pulse Resp B/P (MAP) Pulse Ox O2 Delivery O2 Flow Rate FiO2 09/07/18 16:53 99.2 115 24 121/73 96 Room Air Status: improved Disposition: HOME, SELF-CARE Condition: Improved Scripts Tramadol Hcl* (ULTRAM*) 50 Mg Tablet 50 MG ORAL Q6H PRN for For Pain, #6 TAB 0 Refills Prov: Sebastian Dodge MD 09/07/18 Ondansetron Odt* (ZOFRAN ODT*) 4 Mg Tab.rapdis 4 MG BC EVERY 8 HOURS, #6 TAB 0 Refills Prov: Sebastian Dodge MD 09/07/18 Ciprofloxacin Hcl* (CIPROFLOXACIN HCL*) 500 Mg Tablet 500 MG ORAL Q12H, #10 TAB 0 Refills Prov: Sebastian Dodge MD 09/07/18 Referrals: NON PHYSICIAN (PCP) Sebastian Dodge MD Sep 07, 2018 15:50
[2018-09-07] MEDS ORDERED: CIPROFLOXACIN500 M2 ORAL (15:57)
[2018-09-07] MEDS ORDERED: TRAMADOL HCL50 MG ORAL (15:57)
[2018-09-07] MEDS ORDERED: ONDANSETRON ODT4 MG BC (15:57)
[2018-09-07 16:53] VITALS: BP 121/73
--- NOTE | 2018-09-07 16:54 | NUR ---
ER DISCHARGE NOTE: Patient is cleared to be discharged per ERMD, pt is aox4, on room air, with stable vital signs. pt was given dc and prescription instructions, pt was able to verbalize understanding, pt id band and iv site removed without complications. pt is able to ambulate with steady gait. pt took all belongings.
== END 2018-09-07 16:40 | disposition home or self-care (01) ==
LOC: EMR 11:20
DX: R11.2 Nausea with vomiting, unspecified (principal); R19.7 Diarrhea, unspecified; J06.9 Acute upper respiratory infection, unspecified; M54.5 Low back pain; J45.909 Unspecified asthma, uncomplicated
CPT/HCPCS: 36415; 80053; 81003; 81025; 83605; 83690; 85007; 85025; 85610; 85730; 96361; 96365; 96375; 99284; J0744; J1200; J2270; J2765

== ENCOUNTER 2019-01-07 21:02 | Emergency (ER) | payer OTHER ==
[~2019-01-07] VITALS: Ht 154.9 cm; Wt 59.0 kg
[~2019-01-07 21:02] MED LIST changes: +CIPROFLOXACIN500 M2 ORAL; +ONDANSETRON ODT4 MG BC; +TRAMADOL HCL50 MG ORAL; +VENTOLIN HFA18 GM INH
[2019-01-07 21:10] VITALS: BP 121/73
--- NOTE | 2019-01-07 21:20 | NUR ---
ED Nurse Note: RECIEVED PT FROM HOME WITH C/O DYSURIA AND BURNING FOR PAST 3 DAYS, PT DENIES FEVERS, NAUSEA OR VOMITING OR ANY OTHER COMPLAINTS, PT ASSISTED TO GOWNING AND URINE SAMPLE COLLECTED.
[2019-01-07 21:37] LABS: APPEARANCE,URINE CLEAR; BILIRUBIN, URINE NEGATIVE (NEGATIVE); COLOR,URINE PALE YELLOW; GLUCOSE, URINE (UA) NEGATIVE (NEGATIVE); KETONES,URINE NEGATIVE (NEGATIVE); LEUKOCYTE ESTERASE ,URINE 1+ (NEGATIVE); NITRITE,URINE NEGATIVE (NEGATIVE); PH,URINE 6.5 (4.5-8.0); PROTEIN,URINE 2+ (NEGATIVE); UROBILINOGEN,URINE NORMAL MG/DL (0.0-1.0)
[2019-01-07 22:00] VITALS: BP 119/76
[2019-01-07] MEDS ORDERED: MACROBID100 MG ORAL (22:10)
--- NOTE | 2019-01-07 22:10 | Emergency Room Report ---
History of Present Illness General Chief Complaint: Female Urogenital Problems Source: Patient Present Illness HPI 23-year-old female with dysuria x4 days, no aggravating relieving factors, no nausea no vomiting, she endorses suprapubic burning, with urination, no chest pain, no abdominal pain Allergies: Coded Allergies: No Known Allergies (Unverified , 04/19/18) Patient History Past Medical History: see triage record Last Menstrual Period: 12/11/18 Now: No - UNK Reviewed Nursing Documentation: PMH: Agreed; PSxH: Agreed Nursing Documentation-PMH Hx Cardiac Problems: No Hx Hypertension: No Hx Pacemaker: No Hx Asthma: Yes Hx COPD: No Hx Diabetes: No Hx Cancer: No Hx Gastrointestinal Problems: No Hx Dialysis: No Hx Neurological Problems: No Hx Cerebrovascular Accident: No Hx Seizures: No Review of Systems All Other Systems: negative except mentioned in HPI Physical Exam Vital Signs Date Time Temp Pulse Resp B/P (MAP) Pulse Ox O2 Delivery O2 Flow Rate FiO2 01/07/19 21:08 98.1 82 18 121/73 (89) 98 Room Air Sp02 EP Interpretation: reviewed, normal General Appearance: well appearing, no apparent distress, alert Head: normocephalic, atraumatic Eyes: bilateral eye PERRL, bilateral eye EOMI ENT: uvula midline, moist mucus membranes Neck: supple, thyroid normal, supple/symm/no masses Respiratory: lungs clear, no respiratory distress, no retraction, no accessory muscle use Cardiovascular #1: normal peripheral pulses, regular rate, rhythm, no edema, no gallop, no murmur Gastrointestinal: soft, no guarding, no rebound, tenderness - mild suprapubic tenderness Musculoskeletal: normal inspection Neurologic: alert, oriented x3 Psychiatric: mood/affect normal Skin: no rash, warm/dry Medical Decision Making Diagnostic Impression: Primary Impression: UTI ER Course presents ts with most likely UTI, urine cultures reviewed in the past, will provide patient with Macrobid Laboratory Tests Test 01/07/19 21:15 Urine Color Pale yellow Urine Appearance Clear Urine pH 6.5 (4.5-8.0) Urine Specific Stark 1.015 (1.005-1.035) Urine Protein 2+ (NEGATIVE) H Urine Glucose (UA) Negative (NEGATIVE) Urine Ketones Negative (NEGATIVE) Urine Blood 2+ (NEGATIVE) H Urine Nitrite Negative (NEGATIVE) Urine Bilirubin Negative (NEGATIVE) Urine Urobilinogen Normal MG/DL (0.0-1.0) Urine Leukocyte Esterase 1+ (NEGATIVE) H Urine RBC 2-4 /HPF (0 - 2) H Urine WBC 10-15 /HPF (0 - 2) H Urine Squamous Epithelial Cells Occasional /LPF Urine Bacteria Moderate /HPF (NONE) H Urine HCG, Qualitative Negative (NEGATIVE) Last Vital Signs Date Time Temp Pulse Resp B/P (MAP) Pulse Ox O2 Delivery O2 Flow Rate FiO2 01/07/19 21:10 98.1 18 121/73 98 Room Air 01/07/19 21:08 82 Disposition: HOME, SELF-CARE Condition: Stable Scripts Nitrofurantoin Monohyd/M-Cryst (Nitrofurantoin Casey-Mcr 100 mg) 100 Mg Capsule 100 MG ORAL BID, #10 CAP Prov: Jonathan Montiel MD 01/07/19 Referrals: [facility] Patient Instructions: Urinary Tract Infection Additional Instructions: The patient was provided with discharge instructions, notified to follow-up with a primary care doctor and or specialist in the next 24-48 hours, and to return to the ED if they have worsening of their symptoms. Please note that this report is being documented using [employer] technology. This can lead to erroneous entry secondary to incorrect interpretation by the dictating instrument. Jonathan Montiel MD Jan 07, 2019 22:10
[2019-01-07 22:20] VITALS: BP 121/73
== END 2019-01-07 22:21 | disposition home or self-care (01) ==
LOC: EMR 21:38
DX: N39.0 Urinary tract infection, site not specified (principal)
CPT/HCPCS: 81003; 81025; 87086; 99283